=== PATIENT | female | born 1965 | race Caucasian/White ===

== ENCOUNTER → 2016-08-16 14:56 | Outpatient (CLI) | payer BC | END | disposition home or self-care (01) | LOC: D.MRI 14:56 | DX: M54.6 Pain in thoracic spine (principal) ==

== ENCOUNTER → 2017-01-03 16:48 | Outpatient (CLI) | payer BC | END | disposition home or self-care (01) | LOC: D.MAMMO 16:00 | DX: Z12.31 Encounter for screening mammogram for malignant neoplasm of breast (principal) ==

== ENCOUNTER → 2018-02-09 12:56 | Outpatient (CLI) | payer BC | END | disposition home or self-care (01) | LOC: D.MRI 12:56 | DX: M54.2 Cervicalgia (principal) ==

== ENCOUNTER → 2018-04-22 18:26 | Outpatient (CLI) | payer BC | END | disposition home or self-care (01) | LOC: D.MAMMO 11:15 | DX: Z12.31 Encounter for screening mammogram for malignant neoplasm of breast (principal) ==